=== PATIENT | female | born 1995 | race Caucasian/White ===

== ENCOUNTER 2016-11-04 15:26 | Emergency (ER) | payer BC ==
[2016-11-04 15:33] VITALS: BP 100/67
--- NOTE | 2016-11-04 16:55 | UC ---
Complaint Female HPI - HPI Summary HPI Summary: TWO DAYS OF FREQUENCY AND URGENCY WITH URINATION. NO VAGINAL DISCHARGE. NO FEVER. NO BACK PAIN. NO ABDOMINAL PAIN. NO CHANGES IN MEDICATION. NO HISTORY OF KIDNEY STONES. NO CHANGES IN SEXUAL PARTNER FOR ONE YEAR. NO LESIONS OR STD HISTORY. - History Of Current Complaint Chief Complaint: UCGU Stated Complaint: UTI Hx Obtained From: Patient Hx Last Menstrual Period: 10/28/16 Onset/Duration: Gradual Onset, Lasting Days, Still Present Timing: Lasting Days Severity Initially: Mild Severity Currently: Mild Pain Intensity: 0 Pain Scale Used: 0-10 Numeric Character: Dull Aggravating Factor(s): Urination Associated Signs And Symptoms: Negative: Fever, Back Pain, Vaginal Bleeding/ Discharge, Vaginal Discharge, Nausea, Vomiting(# Of Episodes =), Genital Swelling, Genital Blisters - Risk Factors Ectopic Risk Factor: Negative Ovarian Torsion Risk Factor: Negative - Allergies/Home Medications Allergies/Adverse Reactions: Allergies Allergy/AdvReac Type Severity Reaction Status Date / Time No Known Allergies Allergy Verified 11/04/16 15:33 PMH/Surg Hx/FS Hx/Imm Hx Previously Healthy: Yes - Surgical History Surgical History: None - Family History Known Family History: Negative: Renal Disease - Social History Occupation: Employed Full-time Lives: With Family Alcohol Use: None Substance Use Type: None Smoking Status (MU): Never Smoked Tobacco - Immunization History Vaccination Up to Date: Yes Review of Systems Constitutional: Negative Skin: Negative Eyes: Negative ENT: Negative Respiratory: Negative Cardiovascular: Negative Gastrointestinal: Negative Genitourinary: Hematuria, Frequency, Urgency Motor: Negative Neurovascular: Negative Musculoskeletal: Negative Neurological: Negative Psychological: Negative All Other Systems Reviewed And Are Negative: Yes Physical Exam Triage Information Reviewed: Yes Appearance: Well-Appearing, No Pain Distress, Well-Nourished Vital Signs: Initial Vital Signs Temp 98.1 F 11/04/16 15:29 Pulse 64 11/04/16 15:29 Resp 16 11/04/16 15:29 BP 100/67 11/04/16 15:29 Pulse Ox 97 11/04/16 15:29 Vital Signs Reviewed: Yes Eye Exam: Normal ENT Exam: Normal Dental Exam: Normal Neck exam: Normal Neck: Positive: Supple Respiratory Exam: Normal Respiratory: Positive: Chest non-tender, Lungs clear, Normal breath sounds Cardiovascular Exam: Normal Cardiovascular: Positive: RRR, No Murmur, Pulses Normal Abdominal Exam: Normal Abdomen Description: Positive: Nontender, No Organomegaly, Soft. Negative: CVA Tenderness (R), CVA Tenderness (L) Musculoskeletal Exam: Normal Musculoskeletal: Positive: Strength Intact, ROM Intact Neurological Exam: Normal Psychological Exam: Normal Skin Exam: Normal Complaint Female Dx - Course Course Of Treatment: PATINET GIVEN PYRIDIYUM, WILL FOLLOW UP THIS WEEK WITH PRIMARY CARE PROVIDER. URINE SENT FOR CULTURE. PATIENT DEFERRED PELVIC EXAM AT THIS TIME. - Differential Dx/Diagnosis Differential Diagnosis/HQI/PQRI: Cervicitis, Pelvic Inflammatory Disease, Renal Colic, Retained Foreign Body, Sexually Transmitted Disease, Urinary Tract Infection Provider Diagnoses: DYSURIA Discharge - Discharge Plan Condition: Stable Disposition: HOME Prescriptions: Phenazopyridine TAB* [Pyridium 100 mg TAB*] 100 mg PO TID PRN #12 tab PRN Reason: Pain Patient Education Materials: Dysuria (ED) Referrals: Anupam Wilson MD [Primary Care Provider] -
== END 2016-11-04 16:16 | disposition home or self-care (01) ==
LOC: UCEAST 15:26
DX: R30.0 Dysuria (principal); R39.15 Urgency of urination; R31.9 Hematuria, unspecified; Z32.02 Encounter for pregnancy test, result negative
CPT/HCPCS: 81003; 84702; 87086; 99212; G0463